=== PATIENT | male | born 1975 | race Caucasian/White ===

== ENCOUNTER 2023-06-29 06:44 | Outpatient (CLI) | payer MEDICARE, MEDICAID, SELFPAY ==
--- NOTE | 2023-06-29 08:43 | W.ANESCHARGE ---
Anesthesia Charges Start Date/Time Anesthesia Start Date: 06/29/23 Anesthesia Start Time: 08:09 Stop Date/Time Anesthesia Stop Date: 06/29/23 Anesthesia Stop Time: 08:39
--- NOTE | 2023-06-29 10:05 | W.ANESCHARGE ---
Anesthesia Charges Start Date/Time Anesthesia Start Date: 06/29/23 Anesthesia Start Time: 08:09 Stop Date/Time Anesthesia Stop Date: 06/29/23 Anesthesia Stop Time: 08:39
== END 2023-06-29 06:45 | disposition home or self-care (01) ==
LOC: OP CLINIC 06:47
PROVIDERS: PCP Family Medicine; Visit Provider Internal Medicine Gastroenterology
DX: Z12.11 Encounter for screening for malignant neoplasm of colon (principal); K63.5 Polyp of colon; K62.1 Rectal polyp; Q43.8 Other specified congenital malformations of intestine
CPT/HCPCS: 00811; 45385; 88305; J2704